=== PATIENT | male | born 1990 | race Caucasian/White ===

== ENCOUNTER 2023-09-06 08:14 | Emergency (ER) | payer OTHER, SELFPAY ==
[2023-09-06 08:45] VITALS: BP 129/89; PULSE 83; TEMP 37.3; O2SAT 98; BMI 43.2
--- NOTE | 2023-09-06 09:32 | CTR_ITS ---
PROCEDURE INFORMATION: Exam: CT Abdomen And Pelvis With Contrast Exam date and time: 09/06/2023 10:09 AM Age: 32 years old Clinical indication: Other: Hematochezia; Prior surgery; Surgery date: 6+ months; Surgery type: Appy; Additional info: Umbilical abd pain, gi bleed TECHNIQUE: Imaging protocol: Computed tomography of the abdomen and pelvis with contrast. Radiation optimization: All CT scans at this facility use at least one of these dose optimization techniques: automated exposure control; mA and/or kV adjustment per patient size (includes targeted exams where dose is matched to clinical indication); or iterative reconstruction. Contrast material: OMNI 350; Contrast volume: 100 ml; Contrast route: INTRAVENOUS (IV); COMPARISON: No relevant prior studies available. RADIATION DOSE METRICS: Total DLP (mGy-cm): 1394.53 FINDINGS: Lungs: Visualized lung bases are clear. Liver: Mild hepatic steatosis. No hepatic masses. Gallbladder and bile ducts: The gallbladder is unremarkable. No biliary ductal dilatation. Pancreas: The pancreas is unremarkable. Spleen: The spleen is unremarkable. Adrenal glands: The adrenal glands are unremarkable. Kidneys and ureters: Kidneys are normal. No hydronephrosis or nephrolithiasis. Stomach and bowel: Large bowel is diffusely decompressed. Fatty infiltration of much of the large bowel wall. Nonobstructive bowel-gas pattern. Appendix: No evidence of acute appendicitis. Intraperitoneal space: No significant free fluid in the abdomen or pelvis. Vasculature: Aorta and its major branches are within normal limits. Lymph nodes: No suspicious lymphadenopathy. Urinary bladder: Urinary bladder is within normal limits. Reproductive: Visualized reproductive structures are within normal limits. Bones/joints: No acute osseous findings. Soft tissues: Visualized superficial soft tissues are within normal limits. CT/CT abdomen pelvis w con* [id number] IMPRESSION: 1. Fatty infiltration of much of the large bowel wall. This can be seen in the setting of chronic large bowel inflammation. 2. Mild hepatic steatosis.
--- NOTE | 2023-09-06 09:33 | ED_ITS ---
HPI - GI Bleed 2 General: Chief complaint: GI Bleed Stated complaint: blood in stool Time Seen by Provider: 09/06/23 08:21 History of Present Illness: Patient presents to the ER with complaints of blood per rectum this morning he said he was feeling fine did get up to use the bathroom and had to strain and then noticed the had blood in the toilet and on the toilet paper. Patient says been having abdominal pain as well as nausea vomiting for few weeks. He states his pain is behind his bellybutton sharp stabbing nature that comes and goes. Says sometimes happens after eating or other times after coughing sometimes just goes away on its own. Seems to be worse when he sitting up. Patient has had a upper GI bleed with ulcer in the past he said this is totally different than that. Review of Systems 2 General: Reports: 10 or more systems reviewed and unremarkable except in HPI and below Physical Exam 2 Const: COMMON NORMALS: no acute distress, average body habitus, patient oriented x3, no limitations, healthy appearing, alert and well nourished HENMT: COMMON NORMALS: normocephalic, atraumatic, hearing grossly normal bilaterally, external ears normal, EAC's normal, Normal external nose present, moist oral mucous membranes and oropharynx normal HEAD & SCALP: normocephalic and atraumatic NOSE: Normal external nose present EXTERNAL EAR: Yes external ears normal EXTERNAL AUDITORY CANAL: EAC's normal Neck/C-Spine: COMMON NORMALS: no JVD Chest: COMMONS NORMALS: normal inspection of the chest and normal palpation of entire chest wall Resp: COMMON NORMALS: normal respiratory effort, No retractions, No use of accessory muscles and clear to auscultation bilaterally AUSCULTATION: clear to auscultation bilaterally Cardio: COMMON NORMALS: no JVD, regular rate, regular rhythm, S1 normal heart sound present, S2 normal heart sound present, No gallops present (Cardio), No clicks present (Cardio), No murmurs present (Cardio) and No rub (Cardio) R ATE: regular rate RHYTHM: regular rhythm HEART SOUNDS: S1 normal heart sound present and S2 normal heart sound present GI: COMMON NORMALS: Normal to inspection, nondistended, normoactive bowel sounds present, No hepatosplenomegaly present and no masses; negative for non-tender (Tender to palpation over umbilical area otherwise negative) PALPATION: Yes No hepatosplenomegaly present Neuro: COMMON NORMALS: patient oriented x3 SENSORIUM/ORIENTATION: Yes alert Course 2 Vital Signs: Vital signs: Vital Signs Temperature 99.1 F 09/06/23 08:45 Pulse Rate 83 09/06/23 08:45 Blood Pressure 129/89 09/06/23 08:45 Pulse Oximetry 98 09/06/23 08:45 Oxygen Delivery Me thod Room Air 09/06/23 08:45 MDM - GI Bleed Medical Decision Making Patient was worked up with physical exam and lab work, urinalysis, abdomen pelvis contrasted CT all of which was fairly benign, urinalysis did show mild urinary tract infection abdominal CT did not show any acute changes. Patient did have mild elevation in his liver enzymes. Patient will be sent back to his primary care physician for further evaluation and treatment. Antibiotic prescription will be sent into [facility] for his urinary tract infection. Differential Diagnosis Likely Lower gastrointestinal hemorrhage; Unlikely hemorrhoids, infectious diarrhea, esophageal varices, gastritis or Upper gastrointestinal hemorrhage Medical Records I reviewed the patient's medical records. Lab Data I reviewed the patient's lab results. 09/06/23 09:50 09/06/23 09:50 Radiology Impressions Abdomen/Pelvis CT 09/06/23 09:32 IMPRESSION: 1. Fatty infiltration of much of the large bowel wall. This can be seen in the setting of chronic large bowel inflammation. 2. Mild hepatic steatosis. Laboratory Results WBC 8.76 10^3/uL (3.29-11.43) 09/06/23 09:50 RBC 4.39 10^6/uL (3.85-5.65) 09/06/23 09:50 Hgb 13.40 g/dL (11.27-16.99) 09/06/23 09:50 Hct 39.5 % (37-53) 09/06/23 09:50 MCV 90.0 fl (82-101) 09/06/23 09:50 MCH 30.5 pg (27-33) 09/06/23 09:50 MCHC 33.9 g/dL (30-55) 09/06/23 09:50 RDW 14.6 % (12.1-15.1) 09/06/23 09:50 Plt Count 163 10^3/cmm (157-399) 09/06/23 09:50 MPV 10.9 fL (7.4-10.4) H 09/06/23 09:50 Neut % (Auto) 34.5 % 09/06/23 09:50 Lymph % (Auto) 54.1 % 09/06/23 09:50 Hart % (Auto) 7.3 % 09/06/23 09:50 Eos % (Auto) 2.6 % 09/06/23 09:50 Baso % (Auto) 0.9 % 09/06/23 09:50 Neut # (Auto) 3.02 10^3/uL (1.8-7.7) 09/06/23 09:50 Lymph # (Auto) 4.7 10^3/uL (0.8-4.8) 09/06/23 09:50 Hart # (Auto) 0.6 10^3/uL (0.2-0.9) 09/06/23 09:50 Eos # (Auto) 0.2 10^3/uL (0.0-0.8) 09/06/23 09:50 Baso # (Auto) 0.1 10^3/uL (0.0-0.1) 09/06/23 09:50 Nucleated RBC % (auto) 0 % 09/06/23 09:50 Nucleated RBCs # 0.0 /100WBC 09/06/23 09:50 PT 13.70 SECONDS (12.1-14.9) 09/06/23 09:50 INR 1.01 (0.8-1.2) 09/06/23 09:50 Sodium 133 mmol/L (136-145) L 09/06/23 09:50 Potassium 3.3 mmol/L (3.5-5.1) L 09/06/23 09:50 Chloride 97 mmol/L (98-107) L 09/06/23 09:50 Carbon Dioxide 24 mmol/L (22-29) 09/06/23 09:50 Anion Gap 15.3 (5-19) 09/06/23 09:50 BUN 9 mg/dL (6-20) 09/06/23 09:50 Creatinine 0.9 mg/dL (0.7-1.2) 09/06/23 09:50 GFR Calculation 97.8 mL/min (90-130) 09/06/23 09:50 Glucose 118 mg/dL (65-115) H 09/06/23 09:50 Calculated Osmolality 276 mOsm/kg (285-295) L 09/06/23 09:50 Calcium 8.1 mg/dL (8.5-10.5) L 09/06/23 09:50 Total Bilirubin 0.5 mg/dL (0.15-1.2) 09/06/23 09:50 AST 85 U/L (0-40) H 09/06/23 09:50 ALT 94 U/L (0-41) H 09/06/23 09:50 Alkaline Phosphatase 186 U/L (40-130) H 09/06/23 09:50 Total Protein 6.3 g/dL (6.6-8.7) L 09/06/23 09:50 Albumin 3.6 g/dL (3.5-5.2) 09/06/23 09:50 Globulin 2.7 g/dL (1.3-4.6) 09/06/23 09:50 Lipase 21 U/L (13-60) 09/06/23 09:50 Urine Color Yellow (Yellow) 09/06/23 09:09 Urine Appearance Hazy (CLEAR) A 09/06/23 09:09 Urine pH 5 (5-7) 09/06/23 09:09 Ur Specific Jber 1.015 (1.005-1.030) 09/06/23 09:09 Urine Protein 1+ (Negative) H 09/06/23 09:09 Urine Glucose (UA) Norm (Normal) 09/06/23 09:09 Urine Ketones 1+ (Negative) H 09/06/23 09:09 Urine Blood Neg (Negative) 09/06/23 09:09 Urine Nitrate Negative (Negative) 09/06/23 09:09 Urine Bilirubin 1+ (Negative) H 09/06/23 09:09 Urine Urobilinogen 1 mg/dL (Negative) H 09/06/23 09:09 Ur Leukocyte Esterase 1+ (Negative) H 09/06/23 09:09 Urine RBC None /hpf (0-2) 09/06/23 09:09 Urine WBC 15-25 /hpf (0-5) H 09/06/23 09:09 Ur Squamous Epith Cells 0-4 /hpf (0-5) H 09/06/23 09:09 Amorphous Sediment Not Reportable 09/06/23 09:09 Urine Bacteria 1+ /hpf (NONE) H 09/06/23 09:09 Urine Mucus 2+ /hpf 09/06/23 09:09 All radiology interpretation(s) finalized by discharge Discharge Plan Discharge Patient Disposition: Home Clinical Impression: Hematochezia Urinary tract infection Qualifiers: Urinary tract infection type: acute cystitis Hematuria presence: with hematuria Qualified Code(s): N30.01 - Acute cystitis with hematuria Condition: Stable Prescriptions: New ciprofloxacin HCl 500 mg tablet 500 mg PO Q12H Qty: 20 0RF Discharge Orders: Discharge ED (Routine); Ordered 09/06/23 Ordered By: Ryan Osorio Patient Instructions: Rectal Bleeding (ED), Urinary Tract Infection in Men (ED) Activity Restrictions/Additional Instructions: Please take all your antibiotics as directed. Please find yourself a family practice doctor to follow-up with for further evaluation and treatment. If this happens again or worsens please feel free to return to the ER. Coding Level of Care Code ED Heavy Equipment Technician for Augusta Chatman
[2023-09-06 09:58] LABS: Specific Gravity, Urine 1.015 (1.005-1.030); Urine Appearance Hazy (CLEAR); Urine Color Yellow (Yellow); pH Urine 5 (5-7)
[2023-09-06 09:59] LABS: Add Urine Microscopic? YES; Bilirubin Urine 1+ (Negative); Blood Urine Neg (Negative); Glucose Urine UA Norm (Normal); Ketones Urine 1+ (Negative); Leukocyte Esterase Urine 1+ (Negative); Nitrate Urine Negative (Negative); Protein Urine 1+ (Negative); Squamous Epithelial Cell Urine 0-4 /hpf (0-5); Urobilinogen Urine 1 mg/dL (Negative); WBC Urine 15-25 /hpf (0-5)
[2023-09-06 10:00] LABS: Add Urine Culture? Yes; Bacteria Urine 1+ /hpf; Mucus Urine 2+ /hpf
[2023-09-06 10:04] LABS: Basophils # 0.1 10^3/uL (0.0-0.1); Basophils % 0.9 %; Eosinophils # 0.2 10^3/uL (0.0-0.8); Eosinophils % 2.6 %; Hematocrit 39.5 % (37-53); Lymphocytes # 4.7 10^3/uL (0.8-4.8); Lymphocytes % 54.1 %; Mean Corpuscular HGB Conc 33.9 g/dL (30-55); Mean Corpuscular Hemoglobin 30.5 pg (27-33); Mean Platelet Volume 10.9 fL (7.4-10.4); Monocytes # 0.6 10^3/uL (0.2-0.9); Monocytes % 7.3 %; Neutrophils # 3.02 10^3/uL (1.8-7.7); Neutrophils % 34.5 %; Nucleated Red Blood Cells % 0 %; Platelet Count 163 10^3/cmm (157-399); Red Blood Count 4.39 10^6/uL (3.85-5.65); Red Cell Distribution Width 14.6 % (12.1-15.1); White Blood Count 8.76 10^3/uL (3.29-11.43)
[2023-09-06] MEDS: iohexol 350 mg/mL 500 mL Btl (per mL) IV (10:12)
[2023-09-06 10:16] LABS: INR 1.01 (0.8-1.2)
[2023-09-06 10:31] LABS: Alanine Aminotransferase 94 U/L (0-41); Albumin Level 3.6 g/dL (3.5-5.2); Alkaline Phosphatase 186 U/L (40-130); Anion Gap 15.3 (5-19); Aspartate Amino Transferase 85 U/L (0-40); Blood Urea Nitrogen 9 mg/dL (6-20); Calcium 8.1 mg/dL (8.5-10.5); Carbon Dioxide 24 mmol/L (22-29); Chloride 97 mmol/L (98-107); Creatinine Clr Calc Pharmacy 174.1247; Globulin 2.7 g/dL (1.3-4.6); Glomerular Filtration Rate 97.8 mL/min (90-130); Glucose 118 mg/dL (65-115); Lipase 21 U/L (13-60); Osmolality Calculated 276 mOsm/kg (285-295); Potassium 3.3 mmol/L (3.5-5.1); Sodium 133 mmol/L (136-145); Total Bilirubin 0.5 mg/dL (0.15-1.2); Total Protein 6.3 g/dL (6.6-8.7)
== END 2023-09-06 11:02 | disposition home or self-care (01) ==
PROVIDERS: Emergency Provider Emergency Medicine
DX: N30.01 Acute cystitis with hematuria (principal); K92.1 Melena
CPT/HCPCS: 74177; 80053; 81001; 83690; 85025; 85610; 87086; 99285; Q9967

== ENCOUNTER 2023-09-24 17:58 | Emergency (ER) | payer OTHER, SELFPAY ==
[2023-09-24 18:15] VITALS: BP 153/110; PULSE 92; RESP 18; TEMP 36.9; O2SAT 98
--- NOTE | 2023-09-24 18:59 | ED_ITS ---
HPI - Back Pain/Injury 2 General: Chief Complaint: Back Pain/Injury Stated Complaint: Back Spasms Time Seen by Provider: 09/24/23 18:59 History of Present Illness: 33-year-old male patient comes in today with severe left thoracic back pain. Patient reports the pain seems to wrap around his chest. Patient does have a area of redness to the back. Patient appears nontoxic. Patient appears in mild to moderate pain. Patient denies any injury. Patient was a poor historian for his medical problems. Review of Systems 2 General: Reports: 10 or more systems reviewed and unremarkable except in HPI and below Card: Reports: chest pain Physical Exam 2 Const: COMMON NORMALS: alert HENMT: COMMON NORMALS: normocephalic HEAD & SCALP: normocephalic Neck/C-Spine: COMMON NORMALS: full ROM Chest: COMMONS NORMALS: normal inspection of the chest Resp: COMMON NORMALS: normal respiratory effort AUSCULTATION: diminished lung sounds Cardio: COMMON NORMALS: regular rate RATE: regular rate GI: COMMON NORMALS: Soft to palpation and non-tender PALPATION: Yes Soft to palpation Back/Pelvis: THORACIC SPINE/UPPER BACK: Yes paraspinal muscle tenderness Thoracic paraspinal muscle tenderness: left (Tenderness) Extremity: COMMON NORMALS: normal to inspection Neuro: SENSORIUM/ORIENTATION: Yes alert Skin: COMMON NORMALS: turgor normal GENERAL SKIN EXAM: turgor normal Course 2 Vital Signs: Vital signs: Vital Signs Temperature 98.4 F 09/24/23 18:15 Pulse Rate 85 09/24/23 22:24 Respiratory Rate 16 09/24/23 22:24 Blood Pressure 138/82 09/24/23 22:24 Pulse Oximetry 98 09/24/23 22:24 Oxygen Delivery Me thod Room Air 09/24/23 18:15 MDM - Back Pain/Injury Medical Decision Making 32-year-old male patient comes in today for complaints of left back pain. On exam patient appears nontoxic. Patient has tenderness to the chest wall with palpation. Lungs are decreased in the bases. Vital signs normal except for some mild elevation of blood pressure. Differential diagnosis includes but not limited to muscle strain, pneumonia, shingles, gallbladder disease, costochondritis. Chest x-ray noted at effusion versus pneumonia in the left lower lung. CBC was unremarkable. CMP noted elevated liver enzymes with AST's ALTs and alkaline phosphatase. CRP was bumped at 16.8. CTA of the chest and contrast study of the abdominal pelvis was done to rule out PE and concerns of elevated liver enzymes for gallbladder disease. CTA noted pneumonia in the left lower lung with a mild effusion. No other signs of abnormalities noted in the abdomen pelvis. Reviewed exam with patient recommended Levaquin for treatment of pneumonia. Recommend follow-up with primary care in 1 week for recheck. Patient and family both reported understanding. Believe the patient's elevated enzymes are probably reactive secondary to the illness or due to fatty liver disease. Labs 09/24/23 19:17 09/24/23 19:17 Radiology Impressions Chest X-Ray 09/24/23 19:06 IMPRESSION: Asymmetric left basal opacities which may reflect atelectasis in the setting of a small left pleural effusion and suboptimal expansion, but concern is raised for possible superimposed aspiration and/or pneumonia. Chest/Abdomen/Pelvis CT 09/24/23 20:15 IMPRESSION: 1. Basal left lower lobe and inferior lingula opacities with somewhat bandlike morphology, suspect an evolving/healing pneumonia superimposed on atelectasis. 2. Small left pleural effusion. 3. Mildly enlarged subcarinal and left hilar lymph nodes which are likely reactive. IMPRESSION: 1. No acute findings. 2. Enlarged fatty liver. Laboratory Results WBC 9.16 10^3/uL (3.29-11.43) 09/24/23 19:17 RBC 3.96 10^6/uL (3.85-5.65) 09/24/23 19:17 Hgb 12.20 g/dL (11.27-16.99) 09/24/23 19:17 Hct 39.1 % (37-53) 09/24/23 19:17 MCV 98.7 fl (82-101) 09/24/23 19:17 MCH 30.8 pg (27-33) 09/24/23 19:17 MCHC 31.2 g/dL (30-55) 09/24/23 19:17 RDW 15.5 % (12.1-15.1) H 09/24/23 19:17 Plt Count 270 10^3/cmm (157-399) 09/24/23 19:17 MPV 9.7 fL (7.4-10.4) 09/24/23 19:17 Neut % (Auto) 63.6 % 09/24/23 19:17 Lymph % (Auto) 26.4 % 09/24/23 19:17 Turner % (Auto) 7.9 % 09/24/23 19:17 Eos % (Auto) 1.0 % 09/24/23 19:17 Baso % (Auto) 0.7 % 09/24/23 19:17 Neut # (Auto) 5.83 10^3/uL (1.8-7.7) 09/24/23 19:17 Lymph # (Auto) 2.4 10^3/uL (0.8-4.8) 09/24/23 19:17 Turner # (Auto) 0.7 10^3/uL (0.2-0.9) 09/24/23 19:17 Eos # (Auto) 0.1 10^3/uL (0.0-0.8) 09/24/23 19:17 Baso # (Auto) 0.1 10^3/uL (0.0-0.1) 09/24/23 19:17 Nucleated RBC % (auto) 0 % 09/24/23 19:17 Nucleated RBCs # 0.0 /100WBC 09/24/23 19:17 Sodium 136 mmol/L (136-145) 09/24/23 19:17 Potassium 3.7 mmol/L (3.5-5.1) 09/24/23 19:17 Chloride 104 mmol/L (98-107) 09/24/23 19:17 Carbon Dioxide 25 mmol/L (22-29) 09/24/23 19:17 Anion Gap 10.7 (5-19) 09/24/23 19:17 BUN 8 mg/dL (6-20) 09/24/23 19:17 Creatinine 0.8 mg/dL (0.7-1.2) 09/24/23 19:17 GFR Calculation 112.0 mL/min (90-130) 09/24/23 19:17 Glucose 108 mg/dL (65-115) 09/24/23 19:17 Calculated Osmolality 281 mOsm/kg (285-295) L 09/24/23 19:17 Calcium 8.2 mg/dL (8.5-10.5) L 09/24/23 19:17 Total Bilirubin 0.4 mg/dL (0.15-1.2) 09/24/23 19:17 AST 116 U/L (0-40) H 09/24/23 19:17 ALT 170 U/L (0-41) H 09/24/23 19:17 Alkaline Phosphatase 168 U/L (40-130) H 09/24/23 19:17 C-Reactive Protein 16.8 mg/L (0.0-4.9) H 09/24/23 19:17 Total Protein 6.8 g/dL (6.6-8.7) 09/24/23 19:17 Albumin 3.8 g/dL (3.5-5.2) 09/24/23 19:17 Globulin 3.0 g/dL (1.3-4.6) 09/24/23 19:17 All radiology interpretation(s) finalized by discharge Discharge Plan Discharge Patient Disposition: Home Clinical Impression: Pneumonia Qualifiers: Pneumonia type: due to unspecified organism Laterality: left Lung location: l ower lobe of lung Qualified Code(s): J18.9 - Pneumonia, unspecified organism Condition: Stable Prescriptions: New levofloxacin 750 mg tablet 750 mg PO DAILY 7 Days Qty: 7 0RF diclofenac sodium 75 mg tablet,delayed release (DR/EC) 75 mg PO BID Qty: 14 0RF Discontinued ciprofloxacin HCl 500 mg tablet 500 mg PO Q12H Qty: 20 0RF Discharge Orders: Discharge ED (Routine); Ordered 09/24/23 Ordered By: Severo Moore Discharge Diet: Usual diet Discharge Activity: Increase activity as tolerated Patient Instructions: Pneumonia (ED) Activity Restrictions/Additional Instructions: Home and rest. Drink plenty of fluids. Take antibiotics as directed. Activity as tolerated. Follow-up with primary care in 1 week for recheck. Coding Level of Care Code ED Filling And Packing Supervisor for Augusta Chatman
--- NOTE | 2023-09-24 19:06 | XRR_ITS ---
PROCEDURE INFORMATION: Exam: XR Chest Exam date and time: 09/24/2023 7:33 PM Age: 32 years old Clinical indication: Chest wall pain; Additional info: Left chest wall pain TECHNIQUE: Imaging protocol: Radiologic exam of the chest. Views: 1 view. COMPARISON: CT abdomen pelvis w con* [id number] 09/06/2023 10:09 AM FINDINGS: Lungs: Right basilar atelectasis. Asymmetric left basal opacities. Pleural spaces: Small left pleural effusion. No pneumothorax. Heart/Mediastinum: Normal cardiomediastinal silhouette. Bones/joints: No acute osseous abnormality. XR/XR chest 1V portable [id number] IMPRESSION: Asymmetric left basal opacities which may reflect atelectasis in the setting of a small left pleural effusion and suboptimal expansion, but concern is raised for possible superimposed aspiration and/or pneumonia.
[2023-09-24 19:22] LABS: Basophils # 0.1 10^3/uL (0.0-0.1); Basophils % 0.7 %; Eosinophils # 0.1 10^3/uL (0.0-0.8); Hematocrit 39.1 % (37-53); Lymphocytes # 2.4 10^3/uL (0.8-4.8); Lymphocytes % 26.4 %; Mean Corpuscular HGB Conc 31.2 g/dL (30-55); Mean Corpuscular Hemoglobin 30.8 pg (27-33); Mean Corpuscular Volume 98.7 fl (82-101); Mean Platelet Volume 9.7 fL (7.4-10.4); Monocytes # 0.7 10^3/uL (0.2-0.9); Monocytes % 7.9 %; Neutrophils # 5.83 10^3/uL (1.8-7.7); Neutrophils % 63.6 %; Nucleated Red Blood Cells % 0 %; Platelet Count 270 10^3/cmm (157-399); Red Blood Count 3.96 10^6/uL (3.85-5.65); Red Cell Distribution Width 15.5 % (12.1-15.1); White Blood Count 9.16 10^3/uL (3.29-11.43)
[2023-09-24] MEDS: dexamethasone 10 mg/mL INJ IM (19:25)
[2023-09-24] MEDS: ketorolac 30 mg/mL INJ IM (19:25)
[2023-09-24] MEDS: orphenadrine 30 mg/mL Inj 2 mL 60 MG IM (19:25)
[2023-09-24 19:39] LABS: Alanine Aminotransferase 170 U/L (0-41); Albumin Level 3.8 g/dL (3.5-5.2); Alkaline Phosphatase 168 U/L (40-130); Anion Gap 10.7 (5-19); Aspartate Amino Transferase 116 U/L (0-40); Blood Urea Nitrogen 8 mg/dL (6-20); C Reactive Protein 16.8 mg/L (0.0-4.9); Calcium 8.2 mg/dL (8.5-10.5); Carbon Dioxide 25 mmol/L (22-29); Chloride 104 mmol/L (98-107); Creatinine Clr Calc Pharmacy 198.8835; Glucose 108 mg/dL (65-115); Osmolality Calculated 281 mOsm/kg (285-295); Potassium 3.7 mmol/L (3.5-5.1); Sodium 136 mmol/L (136-145); Total Bilirubin 0.4 mg/dL (0.15-1.2); Total Protein 6.8 g/dL (6.6-8.7)
--- NOTE | 2023-09-24 20:15 | CTR_ITS ---
PROCEDURE INFORMATION: Exam: CTA Chest With Contrast Exam date and time: 09/24/2023 8:56 PM Age: 32 years old Clinical indication: Other: Cp; Chest wall pain; Prior surgery; Surgery date: 6+ months; Surgery type: Appy; Patient HX: Pain between shoulder blades, elevated liver enzymes; Additional info: Chest pain, effusion, elevated liver enzymes TECHNIQUE: Imaging protocol: Computed tomographic angiography of the chest with contrast. Exam focused on the arteries. 3D rendering (Not supervised by radiologist): MIP and/or 3D reconstructed images were created by the technologist. Radiation optimization: All CT scans at this facility use at least one of these dose optimization techniques: automated exposure control; mA and/or kV adjustment per patient size (includes targeted exams where dose is matched to clinical indication); or iterative reconstruction. Contrast material: OMNI 350; Contrast volume: 180 ml; Contrast route: INTRAVENOUS (IV); COMPARISON: CR (CHEST, ) 09/24/2023 7:33 PM RADIATION DOSE METRICS: Total DLP (mGy-cm): 2822 FINDINGS: Pulmonary arteries: No pulmonary embolism. Aorta: Unremarkable. No aortic aneurysm. No aortic dissection. Lungs: Mild bronchial wall thickening. Basal left lower lobe and inferior lingula opacities with somewhat bandlike morphology. No masses. Pleural spaces: No pneumothorax. Small left pleural effusion. Heart: Unremarkable. No cardiomegaly. No pericardial effusion. Lymph nodes: Mildly enlarged subcarinal and left hilar lymph nodes. Bones/joints: No acute fracture. Soft tissues: Unremarkable. PROCEDURE INFORMATION: Exam: CT Abdomen And Pelvis With Contrast Exam date and time: 09/24/2023 8:56 PM Age: 32 years old Clinical indication: Other: Cp; Chest wall pain; Prior surgery; Surgery date: 6+ months; Surgery type: Appy; Patient HX: Pain between shoulder blades, elevated liver enzymes; Additional info: Chest pain, effusion, elevated liver enzymes TECHNIQUE: Imaging protocol: Computed tomography of the abdomen and pelvis with contrast. Radiation optimization: All CT scans at this facility use at least one of these dose optimization techniques: automated exposure control; mA and/or kV adjustment per patient size (includes targeted exams where dose is matched to clinical indication); or iterative reconstruction. Contrast material: OMNI 350; Contrast volume: 180 ml; Contrast route: INTRAVENOUS (IV); COMPARISON: CT abdomen pelvis w con* [id number] 09/06/2023 10:09 AM RADIATION DOSE METRICS: Total DLP (mGy-cm): 2822 FINDINGS: Liver: Liver measures 22 cm in length. Low density. Gallbladder and bile ducts: Unremarkable. Pancreas: Unremarkable. Spleen: Unremarkable. Adrenal glands: Unremarkable. Kidneys and ureters: Unremarkable. No hydronephrosis. Stomach and bowel: Stable fatty submucosal fatty infiltration of the large bowel suggesting chronic inflammation. No bowel obstruction. Appendix: Post appendectomy. Intraperitoneal space: Unremarkable. Vasculature: Unremarkable. Lymph nodes: Unremarkable. Urinary bladder: Unremarkable as visualized. Reproductive: Unremarkable as visualized. Bones/joints: No acute osseous abnormality. Soft tissues: Unremarkable. CT/CT angio chest w abd pel w con IMPRESSION: 1. Basal left lower lobe and inferior lingula opacities with somewhat bandlike morphology, suspect an evolving/healing pneumonia superimposed on atelectasis. 2. Small left pleural effusion. 3. Mildly enlarged subcarinal and left hilar lymph nodes which are likely reactive. IMPRESSION: 1. No acute findings. 2. Enlarged fatty liver.
[2023-09-24] MEDS: iohexol 350 mg/mL 500 mL Btl (per mL) IV (20:57)
[2023-09-24] MEDS: levoFLOXacin 750 mg Tablet PO (22:20)
[2023-09-24 22:24] VITALS: BP 138/82; PULSE 85; RESP 16; O2SAT 98
== END 2023-09-24 22:25 | disposition home or self-care (01) ==
PROVIDERS: Emergency Provider Nurse Practitioner Family
DX: J18.9 Pneumonia, unspecified organism (principal)
CPT/HCPCS: 71045; 71275; 74177; 80053; 85025; 86140; 96372; 99285; J1100; J1885; J2360; Q9967